=== PATIENT | female | born 1965 | race Two or more races ===

== ENCOUNTER 2025-04-10 18:27 | Emergency (ER) | payer SELFPAY ==
[2025-04-10 18:35] VITALS: BP 192/119; PULSE 68; RESP 18; TEMP 36.1; O2SAT 100; BMI 24.7
[2025-04-10 19:39] VITALS: BP 214/111
[2025-04-10 20:31] LABS: Absolute Lymphocyte Count 3.12 X10^3/uL (0.83-4.51); Absolute Neutrophil Count 1.9 X10^3/uL (2.0-7.7); Basophil# 0.03 X10^3/uL; Basophil% 0.5 % (0-1); Eosinophil# 0.07 X10^3/uL; Eosinophils% 1.3 % (0-5); Hemoglobin 13.2 g/dL (12.0-15.0); Lymphocyte # 3.12 X10^3/ul (0.83-4.51); Lymphocyte % 55.7 % (19-41); Mean Corp Hgb Conc 33.8 g/dL (32-36); Mean Corpuscular Hgb 29.3 pg (27.0-32.0); Mean Corpuscular Volume 86.7 fL (81-99); Monocyte# 0.44 X10^3/uL; Monocyte% 7.9 % (0-10); NRBC Flagged by Analyzer 0 % (0-5); Neutrophil # 1.93 X10^3/uL (2.7-7.7); Neutrophil % 34.4 % (47-70); Platelet Count 245 K/mm3 (150-450); RBC Distribution Width CV 13.9 % (11.6-14.6); RBC Distribution Width SD 43.4 fl (35.1-43.9); White Blood Count 5.6 K/mm3 (4.4-11.0)
[2025-04-10 20:48] LABS: Anion Gap 10 (5-15); BUN 21 mg/dL (4-19); BUN/Creat Ratio 21.7 RATIO (10-20); Calcium,Total 9.5 mg/dL (7.6-11.0); Carbon Dioxide 25.5 mmol/L (21.0-32.0); Chloride 105 mmol/L (98-108); Creatinine, Serum 0.96 mg/dL (0.70-1.20); EST Glomerular Filtration Rate 69 (>60); Estimated Creatinine Clearance 64.44 ml/min (50-250); Glucose 103 mg/dL (70-99); Potassium 3.9 mmol/L (3.3-5.1); Sodium Level 140 mmol/L (133-145)
[2025-04-10 21:00] VITALS: BP 209/116
--- NOTE | 2025-04-10 21:41 | RAD_ITS ---
PROCEDURE: CHEST PA AND LATERAL 04/10/2025 REASON FOR EXAM: CHEST PAIN TECHNIQUE: Frontal and lateral views of the chest. COMPARISON: None FINDINGS: Hardware: None Heart: The heart size is normal. Mediastinum: The mediastinal contour is unremarkable. Lungs: The lungs are clear. Bones: The bones are unremarkable. RAD/Chest PA and Lateral IMPRESSION: NO ACUTE FINDINGS. Reading Location: [facility]
[2025-04-10 21:49] LABS: Troponin T High Sensitivity < 6 ng/L (<=14)
--- NOTE | 2025-04-10 22:02 | EKG12_ITS ---
Test Reason : HTN Blood Pressure : */* mmHG Vent. Rate : 66 BPM Atrial Rate : 66 BPM P-R Int : 170 ms QRS Dur : 84 ms QT Int : 420 ms P-R-T Axes : 58 0 28 degrees QTcB Int : 440 ms Normal sinus rhythm Moderate voltage criteria for LVH, may be normal variant ( R in aVL , Sokolow- Olivera ) Borderline ECG Confirmed by Taras Prajapati ([id number]), market editor DAVON VARGAS ([id number]) on 04/16/2025 11:22:42 AM Referred By: Confirmed By: Taras Prajapati
[2025-04-10 22:08] LABS: Mucous, Urine 0 SEEN /hpf (<or=2+)
[2025-04-10 22:09] LABS: Color, Urine Yellow (Yellow); Glucose, Dipstick Normal (Normal); Ketone-Dipstick Negative (Negative); Leukocyte Esterase-Dipstick 100 /ul (Negative); Nitrite-Dipstick Negative (Negative); Occult Blood-Urine 10 /ul (Negative); Protein-Dipstick Negative (Negative); Urine Bilirubin Dipstick Negative (Negative); Urine Clarity Clear (Clear); Urine Urobilinogen Normal (Normal); Urine pH 6.5 (5.0 - 8.0)
[2025-04-10] MEDS: amLODIPine 5 MG Tablet PO (22:14)
--- NOTE | 2025-04-10 22:29 | EDS_ITS ---
HPI History of Present Illness Chief Complaint: Hypertension Informant: patient Narrative Narrative: Patient is a 59-year-old female who speaks [place] Creole. Formal manager community relations was utilized. She is presenting from PCP office for elevated blood pressure. Patient states she did doctor appointment today and her blood pressure was elevated. They sent her to the ER for further evaluation. She states that she gets intermittent episodes of chest discomfort. She feels that it is her heart beating very hard in the center of her chest. She states when her blood pressure is high she gets pain in her neck diffusely. She states that it is always like that. She denies any acute vision changes. She has had some associated nausea denies any vomiting. Denies any urinary symptoms. Does report chronic constipation with no acute change in that. Denies any associate abdominal pain. Does not have a Ferguson headache but no she did have 1 earlier. Denies any back pain. She states while in [facility] she was told that she should take blood pressure medicines but was never able to. She does not currently have any prescription medications to take. She states she does get swelling of her legs sometime is not have any significant change in them today. She denies any other diagnosis. No other complaints or concerns at this time. [facility] Medical History no medical history Home Medications ?Medication ?Instructions ?Recorded ?Last Taken ?Type amlodipine 5 mg tablet (Norvasc) 5 mg PO DAILY #30 tab s 04/11/25 Unknown Rx Allergy/AdvReac Type Severity Reaction Status Date / Time No Known Allergies Allergy Verified 04/10/25 18:34 Family History no significant family his Surgical History no surgical history Social History Smoking Status: Never smoker ROS ROS ED Constitutional Constitutional ED: Denies chills or fever(s) Eyes Eyes: Denies blurry vision or change in vision ENT ENT ED: Denies sore throat Cardiovascular Cardiovascular: Reports chest pain and racing heartbeat Respiratory/Chest Respiratory/Chest: Denies cough or dyspnea Gastrointestinal Gastrointestinal: Reports constipation and nausea; Denies abdominal pain or vomiting Genitourinary Genitourinary ED: Denies dysuria or urinary frequency Musculoskeletal Musculoskeletal: Reports neck pain; Denies arthralgias, back pain or myalgias Integumentary Denies rash Neurologic Neurologic: Reports headache(s); Denies paresthesias or weakness EXAM Physical Exam Const Vital Signs: 04/10/25 18:35 04/10/25 19:37 04/10/25 19:39 Temperature 97 F L Temperature Source Temporal Pulse Rate 68 Respiratory Rate 18 Respiratory Effort Normal Respiratory Pattern Normal Blood Pressure 192/119 H 214/111 H Blood Pressure Mean 143 145 Pulse Ox 100 Oxygen Delivery Method Room Air 04/10/25 21:00 04/10/25 23:17 Temperature Temperature Source Pulse Rate 65 Respiratory Rate 15 Respiratory Effort Respiratory Pattern Blood Pressure 209/116 H 184/105 H Blood Pressure Mean 147 131 Pulse Ox 100 Oxygen Delivery Method Positive well nourished and well developed General Appearance ED: well developed and NAD HEENT Reports moist mucous membranes Eyes PERRL Neck supple and no JVD Chest Wall inspection of chest normal and palpation of chest normal Resp normal respiratory effort and clear to auscultation bilaterally Auscultation: Negative for rales or rhonchi Cardio regular rate, regular rhythm and no murmurs GI normal to inspection, nondistended, normoactive bowel sounds, non-tender and non-distended GI Narrative: No pulsatile mass appreciated. Extremity normal to inspection Extremity Narrative: 2+ radial DP pulses present. General Extremety ED: Negative for edema General Extremity: Negative for edema Neuro oriented x3 Neuro Narrative: Moving all extremities. Normal tone throughout. Sensorium / Orientation: alert Motor Exam: Negative for general weakness Psych mental status grossly normal Skin no rashes or lesions noted and no wounds MDM MDM MDM Narrative Medical decision making narrative: Patient is a 59-year-old female presenting with elevated blood pressure. She says she has some chest pain but describes it more as a pounding sensation in her chest. Vital signs significant for hypertension. She is nontoxic- appearing. She has a normal physical exam. Workup for hypertensive emergency, endorgan damage associated with hypertension such as ACS, pulmonary vascular congestion or HARMAN. Workup largely normal. Delta high since he troponin less than 6 x 2. EKG does not show any acute ischemic changes. I suspect this is asymptomatic hypertension at this point. Was given a dose of Norvasc the emergency room. Will be sent a prescription for this. Given return precautions. Discharged home in stable condition. Blood pressure remains elevated but will allow for permissive hypertension and slow resolution with oral medication. Encouraged to continue follow-up outpatient with primary care. Lab Data Labs: Laboratory Results - last 24 hr 04/10/25 04/10/25 04/10/25 19:52 21:55 22:00 WBC 5.6 RBC 4.50 Hgb 13.2 Hct 39.0 MCV 86.7 MCH 29.3 MCHC 33.8 RDW Std Deviation 43.4 RDW Coeff of Moe 13.9 Plt Count 245 MPV 10.0 Immature Gran % (Auto) 0.200 Neut % (Auto) 34.4 L Lymph % (Auto) 55.7 H Caswell % (Auto) 7.9 Eos % (Auto) 1.3 Baso % (Auto) 0.5 Absolute Neuts (auto) 1.9 L Absolute Lymphs (auto) 3.12 Nucleated RBC % 0 Sodium 140 Potassium 3.9 Chloride 105 Carbon Dioxide 25.5 Anion Gap 10 BUN 21 H Creatinine 0.96 Estim Creat Clear Calc 64.44 Est GFR (MDRD) Non-Af 69 BUN/Creatinine Ratio 21.7 H Glucose 103 H Calcium 9.5 Troponin T High Sens < 6 Troponin T Hi Sens 2 Hr < 6 Urine Color Yellow Urine Clarity Clear Urine pH 6.5 Ur Specific Admire 1.010 Urine Protein Negative Urine Glucose (UA) Normal Urine Ketones Negative Urine Occult Blood 10 H Urine Nitrite Negative Urine Bilirubin Negative Urine Urobilinogen Normal Ur Leukocyte Esterase 100 H Urine RBC 10-25 SEEN Urine WBC 10-25 SEEN Ur Squamous Epith Cells 0-5 SEEN Urine Bacteria 1+ Urine Mucus 0 SEEN Radiography Chest X-Ray - ED: 2 View, Read by ED Physician, Read by Radiologist and No Acute Disease Diagnostic Testing: Clinical Impression(s) from Imaging Studies Chest X-Ray 04/10/25 21:41 IMPRESSION: NO ACUTE FINDINGS. Reading [facility] Rhythm Strip Rhythm Strip: Sinus Rhythm Rate: 66 Ectopy: None EKG Initial EKG: Attestation: I personally reviewed and interpreted this EKG as follows: Interpretation: Sinus Rhythm Comments: Normal sinus rhythm at a rate of 66 bpm Normal axis Normal intervals Minimal voltage criteria for LVH Normal ST segments Discharge Plan Triage Chief Complaint: Hypertension ED Provider: Mona Oseguera Dx/Rx/DC Orders Clinical Impression: Hypertension Instructions: ED Hypertension New Begin Treatment Prescriptions: New amlodipine [Norvasc] 5 mg tablet 5 mg PO DAILY Qty: 30 0RF Primary Care Provider: Care Physician,No Primary Referrals: Care Physician,No Primary [Primary Care Provider] - Vale Plascencia, LABORATORY CLERKK[facility]alC [[facility]] - Print Language: Yi Disposition Disposition: Home, Self Care
[2025-04-10 22:37] LABS: Bacteria 1+ /hpf (None Seen); Red Blood Cells-Urine 10-25 SEEN /hpf (0-5); Squamous Epithelial Cells - UA 0-5 SEEN /hpf (5-10); White Blood Cells 10-25 SEEN /hpf (0-5)
[2025-04-10 22:58] LABS: Troponin T High Sens 2 HR < 6 ng/L (<=14)
[2025-04-10 23:17] VITALS: BP 184/105; PULSE 65; RESP 15; O2SAT 100
[2025-04-11 00:14] VITALS: BP 195/102; PULSE 61; RESP 14; O2SAT 100
[2025-04-11 00:19] VITALS: BP 186/106; PULSE 66; RESP 15; TEMP 36.6; O2SAT 99
[2025-04-11 00:27] LABS: Troponin T High Sens 4 HR < 6 ng/L (<=14)
[2025-04-11 00:32] VITALS: BP 174/113; PULSE 60; RESP 14; O2SAT 100
== END 2025-04-11 00:39 | disposition home or self-care (01) ==
PROVIDERS: Emergency Provider Emergency Medicine; Visit Provider Emergency Medicine
DX: I10 Essential (primary) hypertension (principal); R07.9 Chest pain, unspecified; R11.0 Nausea; Z79.899 Other long term (current) drug therapy; K59.00 Constipation, unspecified; R51.9 Headache, unspecified
CPT/HCPCS: 71046; 80048; 81001; 84484; 85025; 87086; 87088; 93005; 99283; A4216